=== PATIENT | male | born 1965 | race Caucasian/White ===

== ENCOUNTER 2022-09-15 02:41 | Emergency (ER) | payer OTHER ==
[~2022-09-15] VITALS: Ht 188 cm; Wt 108.9 kg
[2022-09-15] MEDS ORDERED: NAPR-1180 PO (03:17)
[2022-09-15] MEDS ORDERED: AMLO-258 PO (03:17)
[2022-09-15] MEDS ORDERED: CYCL10TA16 PO (03:17)
[2022-09-15] MEDS ORDERED: OXYC-38 PO (03:17)
[2022-09-15] MEDS ORDERED: ORPHENADRINE CITRATE 30 MG/ML ML IM ONE (03:30)
[2022-09-15] MEDS ORDERED: KETOROLAC 15MG/ML VIAL (15MG/ML) ONE (03:30)
[2022-09-15] MEDS ORDERED: OXYCODONE/ACETAMIN 5/325MG TAB PO ONE (03:30)
[2022-09-15] MEDS ORDERED: AMLODIPINE 5 MG TAB PO ONE (03:30)
[2022-09-15 03:50] VITALS: BP 187/120
== END 2022-09-15 03:50 | disposition home or self-care (01) ==
LOC: EDH 02:41
DX: M54.42 Lumbago with sciatica, left side (principal); I10 Essential (primary) hypertension; Z79.899 Other long term (current) drug therapy; Z79.1 Long term (current) use of non-steroidal anti-inflammatories (NSAID)
CPT/HCPCS: 99284; 96372 ×2; J1885; J2360